=== PATIENT | female | born 1950 | race Caucasian/White ===

== ENCOUNTER 2021-06-25 02:07 | Emergency (ER) | payer OTHER, SELFPAY ==
[2021-06-25] MEDS ORDERED: ACETAMINOPHEN 500 MG TAB ONE (04:14)
[2021-06-25] MEDS ORDERED: TRAMADOL HCL 50 MG TAB ONE (04:14)
--- NOTE | 2021-06-25 04:27 | EDPHYS ---
Physician Documentation [facility] Name: Annie Guzman Age: 71 yrs Sex: Female : 1950 Arrival Date: 06/25/2021 Time: 02:07 Bed 19 Private MD: ED Physician Steven Weinberg HPI: 06/25 02:20 This 71 yrs old Female presents to ER via EMS with complaints of Fall From Bed. cp 02:20 Details of fall: The patient fell from seated position, off the edge of a bed. Onset: cp The symptoms/episode began/occurred just prior to arrival. Associated injuries: The patient sustained injury to the head, laceration, of the bridge of nose and left preauricular area, left knee, contusion, painful injury, swelling, left hip, painful injury. 02:20 No reported LOC. cp - Social history:: Smoking status: Patient denies any tobacco usage or history of. Patient/guardian denies using alcohol, street drugs. ROS: 02:30 Constitutional: Negative for body aches, chills, fever, poor PO intake. cp 02:30 Cardiovascular: Negative for chest pain, edema. cp 02:30 Respiratory: Negative for cough, shortness of breath, wheezing. 02:30 Abdomen/GI: Negative for abdominal pain, nausea, vomiting, and diarrhea. 02:30 Back: Negative for pain at rest, pain with movement. 02:30 MS/extremity: Positive for pain, tenderness, of the left hip and left knee. 02:30 Neuro: Negative for altered mental status, headache, loss of consciousness, syncope, weakness. 02:30 All other systems are negative. Exam: 02:35 Constitutional: The patient appears in no acute distress, alert, awake, cp non-diaphoretic, non-toxic, well developed, well nourished, obese. 02:35 Head/face: Noted is a laceration(s), that is superficial, of the bridge of nose and cp preauricular are left side, swelling, that is mild. 02:35 Eyes: Periorbital structures: appear normal, Pupils: equal, round, and reactive to light and accomodation, Extraocular movements: intact throughout, Conjunctiva: normal, no exudate, no injection, Sclera: no appreciated abnormality, Lids and lashes: appear normal, bilaterally. 02:35 ENT: External ear(s): are unremarkable, Ear canal(s): are normal, clear, TM's: dullness, bilaterally, Nose: bleeding, is not appreciated, no septal hematoma is appreciated, Mouth: Lips: moist, Oral mucosa: moist, Posterior pharynx: Airway: no evidence of obstruction, patent. 02:35 Neck: C-spine: vertebral tenderness, that is mild, appreciated at C5, crepitus, is not appreciated, ROM/movement: pain, that is mild, with any movement, limited range of motion, is not appreciated. 02:35 Chest/axilla: Inspection: normal, Palpation: is normal, no crepitus, no tenderness. 02:35 Cardiovascular: Rate: normal, Rhythm: regular, Edema: is not appreciated, JVD: is not appreciated. 02:35 Respiratory: the patient does not display signs of respiratory distress, Respirations: normal, no use of accessory muscles, no retractions, labored breathing, is not present, Breath sounds: are clear throughout, no decreased breath sounds, no stridor, no wheezing. 02:35 Abdomen/GI: Inspection: abdomen appears normal, Bowel sounds: active, all quadrants, Palpation: abdomen is soft and non-tender, in all quadrants. 02:35 Back: vertebral tenderness, is not appreciated. 02:35 Musculoskeletal/extremity: Extremities: grossly normal except: noted in the left hip: tenderness, There is no evidence of decreased ROM, deformity, noted in the left knee: contusion, ecchymosis, pain, swelling, tenderness, no evidence of decreased ROM, deformity. 02:35 Neuro: Orientation: to person, place \T\ time. Mentation: able to follow commands, Motor: moves all fours, strength is normal. Vital Signs: 02:14 BP 137 / 70; Pulse 60; Resp 18; Temp 98.1(O); Pulse Ox 95% on R/A; Weight 117.93 kg; sf1 Height 5 ft. 3 in. (160.02 cm); 04:20 BP 116 / 61; Pulse 58; Resp 20; Pulse Ox 93% on R/A; sf1 02:14 Body Mass Index 46.06 (117.93 kg, 160.02 cm) sf1 MDM: 02:10 Patient medically screened. cp 03:00 Differential diagnosis: abrasion, closed head injury, contusion, fracture, laceration, cp multiple trauma. 04:25 Data reviewed: vital signs, nurses notes, radiologic studies, CT scan, plain films. cp 04:25 Test interpretation: by ED physician or midlevel provider: plain radiologic studies. cp Counseling: I had a detailed discussion with the patient and/or guardian regarding: the historical points, exam findings, and any diagnostic results supporting the discharge/admit diagnosis, radiology results, to return to the emergency department if symptoms worsen or persist or if there are any questions or concerns that arise at home. Response to treatment: the patient's symptoms have mildly improved after treatment, VSS. Patient resting comfortably in exam room. Will discharge to home for continued monitoring. 06/25 02:09 Order name: XRAY Knee LEFT 3 view cp 06/25 02:10 Order name: CT Head C Spine cp 06/25 02:10 Order name: CT Facial Bones W/O Con cp 06/25 02:13 Order name: XRAY Pelvis cp 06/25 02:13 Order name: XRAY Hip LEFT 2 view cp 06/25 03:35 Order name: Wound Care: please clean wounds; Complete Time: 04:18 cp 06/25 04:01 Order name: Lupillo wrap-joint: left knee; Complete Time: 04:18 cp Administered Medications: 04:18 Drug: Tylenol 1000 mg Route: PO; sf1 04:18 Drug: UltRAM (traMADol) 50 mg Route: PO; sf1 Disposition: 08:27 Co-signature as Attending Physician, Steven Weinberg MD I agree with the assessment and kdr plan of care. Disposition Summary: 06/25/21 04:27 Discharge Ordered Location: Home cp Problem: new cp Symptoms: have improved cp Condition: Stable cp Diagnosis - Fall from bed, initial encounter cp - Contusion of left knee, initial encounter cp - Abrasion of nose, initial encounter cp - Contusion of nose, initial encounter cp - Contusion of left ear, initial encounter cp - Pain in left hip cp Followup: cp - With: Private Physician - When: 2 - 3 days - Reason: Recheck today's complaints Discharge Instructions: - Discharge Summary Sheet cp - Contusion cp - Facial or Scalp Contusion cp - Acute Knee Pain, Adult cp - Hip Pain cp Forms: - Medication Reconciliation Form cp - Thank You Letter cp - Antibiotic Education cp - Prescription Opioid Use cp Signatures: Dispatcher [employer] Steven Sylvester MD MD kdr Peter Mccartney PA PA cp Fillers, Samantha RN RN sf1
--- NOTE | 2021-06-25 04:27 | ER ---
Nurse's Notes [facility] Name: Annie Guzman Age: 71 yrs Sex: Female : 1950 Arrival Date: 06/25/2021 Time: 02:07 Bed 19 Private MD: Diagnosis: Fall from bed, initial encounter;Contusion of left knee, initial encounter;Abrasion of nose, initial encounter;Contusion of nose, initial encounter;Contusion of left ear, initial encounter;Pain in left hip Presentation: 06/25 02:14 Chief complaint: EMS states: fell from bed, bruise to the left knee, lac to the nose, sf1 and abrasion to the left ear. Coronavirus screen: Vaccine status: Patient reports receiving the 2nd dose of the covid vaccine. At this time, the client does not indicate any symptoms associated with coronavirus-19. Ebola Screen: Patient negative for fever greater than or equal to 101.5 degrees Fahrenheit, and additional compatible Ebola Virus Disease symptoms Patient denies exposure to infectious person. Patient denies travel to an Ebola-affected area in the 21 days before illness onset. Initial Sepsis Screen: Does the patient meet any 2 criteria? No. Patient's initial sepsis screen is negative. Does the patient have a suspected source of infection? No. Patient's initial sepsis screen is negative. Risk Assessment: Do you want to hurt yourself or someone else? Patient reports no desire to harm self or others. Onset of symptoms was June 25, 2021. 02:14 Method Of Arrival: EMS: [facility] sf1 02:14 Acuity: ASH 4 sf1 Triage Assessment: 02:14 General: Appears in no apparent distress. uncomfortable, Behavior is calm, cooperative, sf1 appropriate for age. Pain: Complains of pain in left knee. - Social history:: Smoking status: Patient denies any tobacco usage or history of. Patient/guardian denies using alcohol, street drugs. Screenin:19 Abuse screen: Denies threats or abuse. Nutritional screening: No deficits noted. sf1 Tuberculosis screening: No symptoms or risk factors identified. Fall Risk None identified. Assessment: 04:20 Reassessment: No changes from previously documented assessment. Derm: laceration to sf1 nose, left ear, and hematoma to the left knee. Vital Signs: 02:14 BP 137 / 70; Pulse 60; Resp 18; Temp 98.1(O); Pulse Ox 95% on R/A; Weight 117.93 kg; sf1 Height 5 ft. 3 in. (160.02 cm); 04:20 BP 116 / 61; Pulse 58; Resp 20; Pulse Ox 93% on R/A; sf1 02:14 Body Mass Index 46.06 (117.93 kg, 160.02 cm) sf1 ED Course: 02:07 Patient arrived in ED. mw2 02:08 Peter Mccartney PA is PHCP. cp 02:08 Steven Weinberg MD is Attending Physician. cp 02:14 Cande Brody, ELYSE is Primary Nurse. sf1 02:14 Arm band placed on right wrist. sf1 02:15 Triage completed. sf1 02:19 Call light in reach. sf1 02:45 CT Head C Spine In Process Unspecified. EDMS 02:45 CT Facial Bones W/O Con In Process Unspecified. EDMS 03:24 XRAY Knee LEFT 3 view In Process Unspecified. EDMS 03:24 XRAY Pelvis In Process Unspecified. EDMS 03:24 XRAY Hip LEFT 2 view In Process Unspecified. EDMS 04:22 No provider procedures requiring assistance completed. Patient did not have IV access sf1 during this emergency room visit. 04:22 Dressings: cleaned wounds. sf1 Administered Medications: 04:18 Drug: Tylenol 1000 mg Route: PO; sf1 04:18 Drug: UltRAM (traMADol) 50 mg Route: PO; sf1 Outcome: 04:27 Discharge ordered by . cp 05:33 Discharged to long-term. sf1 05:33 Condition: good 05:33 Discharge instructions given to patient, Instructed on discharge instructions, follow up and referral plans. Demonstrated understanding of instructions, follow-up care. 05:36 Patient left the ED. sf1 Signatures: Dispatcher [employer] EDMS Peter Mccartney PA PA cp [place], MyKena mw2 Cande Brody RN RN sf1
[2021-06-25 06:36] VITALS: BP 116/61; TEMP 98.1; O2SAT 93
--- NOTE | 2021-06-25 20:44 | RAD REPORT ---
EXAM DESCRIPTION: RAD - Pelvis - 06/25/2021 3:24 am CLINICAL HISTORY: 71 years, Female, PAIN COMPARISON: None FINDINGS: 1 single frontal view of the pelvis was obtained. Pelvic brim is intact. Mild to moderate degenerative changes bilateral hip joints. Visualized gas pattern is nondiagnostic. Questionable dege nerative changes lower lumbar spine. No areas of acute bony injuries were demonstrated. No gross so ft tissue abnormality is identified. There are no gross intraosseous lesions. No periosteal react ion were seen. No definitive displaced fracture are identified, if symptoms persist, clinical correla tion and/or further evaluation with CT scan and/or MRI could be of assistance. IMPRESSION: Mild to moderate degenerative changes bilateral hip joints. No gross acute bony injuries were demonstrated. Electronically signed by: Angelo Regalado MD 06/25/2021 3:54 AM CDT Due to temporary technical issues with the PACS/Fluency reporting system, reports are being signed by the in house radiologists without review as a courtesy to insure prompt reporting. The interpreting radiologist is fully responsible for the content of the report.
--- NOTE | 2021-06-25 20:46 | RAD REPORT ---
EXAM DESCRIPTION: CT - Facial Bones W/ Mpr - 06/25/2021 5:01 am CLINICAL HISTORY: Fall from bed COMPARISON: None. TECHNIQUE: CT MAXILLOFACIAL WITHOUT IV CONTRAST on 06/25/2021 2:10 AM CDT This exam was performed according to our departmental dose-optimization program, which includes autom ated exposure control, adjustment of the mA and/or kV according to patient size and/or use of iterati ve reconstruction technique. FINDINGS: There is no acute fracture. The paranasal sinuses are clear. Orbits and globes are unremar kable. Mastoid air cells are clear. Temporomandibular joints are intact. There are no significant sof t tissue abnormalities. IMPRESSION: No post-traumatic findings. Electronically signed by: Steven Almeida MD 06/25/2021 3:54 AM CDT Due to temporary technical issues with the PACS/Fluency reporting system, reports are being signed by the in house radiologists without review as a courtesy to insure prompt reporting. The interpreting radiologist is fully responsible for the content of the report.
--- NOTE | 2021-06-25 20:47 | RAD REPORT ---
EXAM DESCRIPTION: CT - Head C Spine Mpr Wo Con - 06/25/2021 5:03 am CLINICAL HISTORY: 71 years Female fall from bed TECHNIQUE: Multiple axial CT images of the brain and cervical spine were performed followed by sagit lionel and coronal reconstructed images. The CT study is performed according to ALARA (as low as reasona jc achievable) or ALARA/IMAGE GENTLY, with automatic adjustment of mA and/or kV according to patient size. Performed on: 06/25/2021 at 2:45 AM COMPARISON: None. FINDINGS: CT HEAD: There is no evidence of mass, acute mass effect or midline shift. There are no acute extra-axial flui d collections. There is no evidence of acute intracranial hemorrhage. The cerebral sulci and ventricles are normal in size and configuration. There are scattered areas of decreased attenuation within the subcortical and periventricular white m atter most likely due to mild chronic microangiopathy. There is no significant mucosal thickening of the paranasal sinuses. The mastoid air cells are clear. The orbital contents are grossly unremarkable. No acute osseous abnormalities are identified. No focal soft tissue abnormalities are identified. CT CERVICAL SPINE: The cervical vertebrae are normal in height. There is straightening of the normal cervical lordosis. There is moderate disc space narrowing at C6-C7 and mild disc space narrowing throughout the remainde r of the cervical spine. Bone mineralization is normal. The atlanto-axial articulation is preserve d and the odontoid process is intact. There is normal alignment of the facet joints on the parasagittal images. There are mild degenerative changes of the facet joints. There is no evidence of acute fracture or subluxation. There is no significant canal stenosis. Ther e is right 3-C4 and bilateral C4-C5 neural foraminal stenosis secondary to uncovertebral joint and fa cet joint hypertrophy. The prevertebral and paraspinal soft tissues are unremarkable. The lung apices are clear. There are retropharyngeal carotid arteries. There are mild atherosclerotic calcifications along the carotid bifurcations. IMPRESSION: CT HEAD: 1. There is no evidence of acute intracranial pathology. 2. Mild chronic microangiopathy. CT CERVICAL SPINE: 1. No evidence of acute cervical spine injury. 2. Mild degenerative changes of the cervical spine as described above. Electronically signed by: Katharine Carpenter DO 06/25/2021 4:03 AM CDT Due to temporary technical issues with the PACS/Fluency reporting system, reports are being signed by the in house radiologists without review as a courtesy to insure prompt reporting. The interpreting radiologist is fully responsible for the content of the report.
--- NOTE | 2021-06-25 20:49 | RAD REPORT ---
EXAM DESCRIPTION: RAD - Hip Left 2 View - 06/25/2021 3:24 am CLINICAL HISTORY: 71 years, Female, PAIN COMPARISON: None FINDINGS: 2 views of the hip (frontal view of the left hip and frogleg view of the left hip) were ob tained. No areas of acute bony injuries were demonstrated. No gross soft tissue abnormality is i dentified. There are no gross intraosseous lesions. No periosteal reaction were seen. There are moderate to severe osteoarthritis left hip joint with the significant sclerosis, decreased intra-art icular height space, subchondral cyst and spur formations. IMPRESSION: Moderate to severe left hip osteoarthritis. No evidence for acute bony injuries Electronically signed by: Angelo Regalado MD 06/25/2021 3:55 AM CDT Due to temporary technical issues with the PACS/Fluency reporting system, reports are being signed by the in house radiologists without review as a courtesy to insure prompt reporting. The interpreting radiologist is fully responsible for the content of the report.
--- NOTE | 2021-06-25 20:50 | RAD REPORT ---
EXAM DESCRIPTION: RAD - Knee Left 3 View - 06/25/2021 3:24 am CLINICAL HISTORY: 71 years, Female, PAIN COMPARISON: None. FINDINGS: 3 X-ray views of the left knee (Frontal, lateral and oblique views) were performed. There is mild bony osteopenia. There is no evidence for fracture or dislocation. There are no gross intra osseous lesions. No gross soft tissue abnormality is identified. There are moderate degenerative changes within the 3 compartments of the left knee slightly more pronounced along the patellofemoral articulation. There is no joint effusion. There is no periostitis. IMPRESSION: Moderate degenerative changes within the left knee. Electronically signed by: Angelo Regalado MD 06/25/2021 3:53 AM CDT Due to temporary technical issues with the PACS/Fluency reporting system, reports are being signed by the in house radiologists without review as a courtesy to insure prompt reporting. The interpreting radiologist is fully responsible for the content of the report.
== END 2021-06-25 05:36 | disposition home or self-care (01) ==
LOC: ER 02:07
DX: S00.31XA Abrasion of nose, initial encounter (principal); S00.33XA Contusion of nose, initial encounter; S80.02XA Contusion of left knee, initial encounter; S00.432A Contusion of left ear, initial encounter; M25.552 Pain in left hip; W06.XXXA Fall from bed, initial encounter
CPT/HCPCS: 70450; 70486; 72125; 72170; 76377; 99283

== ENCOUNTER 2025-02-01 02:35 | Emergency (ER) | payer OTHER ==
[2025-02-01] MEDS ORDERED: TRANEXAMIC ACID 1,000 MG/10 ML VIAL IV ONE (03:22)
[2025-02-01 03:42] LABS: Absolute Lymphocytes (CBC) 1.7 K/uL (0.7-4.9); Hematocrit 34.5 % (36.0-45.0); Hemoglobin 10.9 g/dL (12.0-15.0); MCH 23.8 pg (27.0-35.0); MCHC 31.5 g/dL (32.0-36.0); MCV 75.6 fL (80-100); MPV 7.6 fL (7.6-11.3); Nucleated RBC Absolute Count 0.0 (0-0); Nucleated Red Blood Cells % 0.0 % (0-0); RBC Red Blood Cell Count 4.57 M/uL (3.86-4.86); White Blood Count 7.30 thou/uL (4.3-10.9)
[2025-02-01 03:55] LABS: PT Prothrombin Time 14.4 SECONDS (10-13.0); PTT, Activated Partial Thromb 33.7 SECONDS (27.2-37.4); Protime INR 1.28
[2025-02-01] MEDS ORDERED: ONDANSETRON 4 MG/2 ML VIAL ONE (03:56)
[2025-02-01] MEDS ORDERED: HYDROMORPHONE HCL 0.5 MG/0.5 ML INJ ONE (03:56)
[2025-02-01 03:58] LABS: Anion Gap 11.6 mEq/L (5.0-15.0); BUN Blood Urea Nitrogen 9.0 mg/dL (7-18); Glucose Level 146.0 mg/dL (74-106); Potassium 3.6 mEq/L (3.5-5.1)
--- NOTE | 2025-02-01 04:41 | ER ---
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 8 teeth was pulled out. 03:07 Coronavirus screen: Client denies travel out of the [place] in the last 14 days. Ebola rg5 Screen: Patient negative for fever greater than or equal to 101.5 degrees Fahrenheit, and additional compatible Ebola Virus Disease symptoms Patient denies exposure to infectious person. Patient denies travel to an Ebola-affected area in the 21 days before illness onset. Initial Sepsis Screen: Does the patient meet any 2 criteria? No. Patient's initial sepsis screen is negative. Does the patient have a suspected source of infection? No. Patient's initial sepsis screen is negative. Risk Assessment: Do you want to hurt yourself or someone else? Patient reports no desire to harm self or others. Onset of symptoms was February 01, 2025. Care prior to arrival: None. 03:07 Method Of Arrival: EMS: [facility] rg5 03:07 Acuity: ASH 3 rg5 Triage Assessment: 03:15 General: Appears in no apparent distress. Behavior is calm, cooperative, appropriate rg5 for age. Pain: Complains of pain in upper left third molar and lower left third molar Quality of pain is described as aching. EENT: Reports pain gum bleeding. Neuro: Level of Consciousness is awake, alert, obeys commands, Oriented to person, place, time, situation. Cardiovascular: Patient's skin is warm and dry. Respiratory: Airway is patent Trachea midline Respiratory effort is even, unlabored, Respiratory pattern is regular, symmetrical. GI: Abdomen is round obese. : No signs and/or symptoms were reported regarding the genitourinary system. Derm: Skin is intact, is fragile, Skin is dry. Musculoskeletal: Circulation, motion, and sensation intact. Range of motion: intact in all extremities. Historical: - Allergies: 03:15 PENICILLINS; rg5 03:15 Promethazine; rg5 03:15 Sulfa (Sulfonamide Antibiotics); rg5 - PMHx: 03:15 depressive disorder; diabetes mellitus; Gastroesophageal reflux disease; Hypertensive rg5 disorder; Hypothyroidism; PERIPHERAL NEUROPATHY; Rheumatoid Arthritis; - PSHx: 03:15 Right knee replacement; rg5 - Immunization history:: Adult Immunizations up to date. - Infectious Disease History:: Denies. - Social history:: Smoking status: Patient denies any tobacco usage or history of. Screenin:41 [facility] ED Fall Risk Assessment (Adult) History of falling in the last 3 months, rg5 including since admission No falls in past 3 months (0 pts) Confusion or Disorientation No (0 pts) Intoxicated or Sedated No (0 pts) Impaired Gait No (0 pts) Mobility Assist Device Used No (0 pt) Altered Elimination No (0 pt) Score/Fall Risk Level 0 - 2 = Low Risk Oriented to surroundings, Maintained a safe environment. Abuse screen: Denies threats or abuse. Nutritional screening: No deficits noted. Tuberculosis screening: No symptoms or risk factors identified. Assessment: 03:41 Reassessment: No changes from previously documented assessment. Patient and/or family rg5 updated on plan of care and expected duration. Pain level reassessed. Patient is alert, oriented x 3, equal unlabored respirations, skin warm/dry/pink. 04:02 Reassessment: Patient is alert, oriented x 3, equal unlabored respirations, skin rg5 warm/dry/pink. Patient states symptoms have improved. Vital Signs: 03:15 BP 110 / 77; Pulse 70; Resp 18; Temp 98; Pulse Ox 97% on R/A; Weight 114.89 kg; Height rg5 5 ft. 3 in. ; Pain 7/10; 04:02 BP 107 / 55; Pulse 63; Resp 18; Pulse Ox 95% ; Pain 7/10; rg5 03:15 Body Mass Index 44.87 (114.89 kg, 160.02 cm) rg5 03:15 Pain Scale: Adult rg5 04:02 Pain Scale: Adult rg5 ED Course: 03:05 Patient arrived in ED. gm2 03:07 Akilah Fagan MD is Attending Physician. sp3 03:10 Nishant Reza, ELYSE is Primary Nurse. rg5 03:15 Triage completed. rg5 03:41 Patient has correct armband on for positive identification. Door closed. Noise rg5 minimized. Warm blanket given. 03:41 No provider procedures requiring assistance completed. Inserted saline lock: 20 gauge rg5 in right wrist, using aseptic technique. Blood collected. Flushed with 10 mL NS. Patient maintains SpO2 saturation greater than 95% on room air. 04:41 called [facility] spoke with Daly advised patient was up for DC she stated she vk will set up transport. 04:50 Provided Education on: post er care. rg5 04:50 IV discontinued, bleeding controlled, No redness/swelling at site. Pressure dressing rg5 applied. Administered Medications: 03:30 Drug: tranexamic acid IV 1000 mg IV at calculated rate once; TOPICAL {Note: gum upper rg5 left.} Route: IV; Rate: calculated rate; Site: Other; 04:51 Follow up: IV Status: Completed infusion; IV Intake: 10ml rg5 04:01 Drug: HYDROmorphone IVP 0.5 mg IVP once Route: IVP; Site: right wrist; rg5 04:12 Follow up: Response: No adverse reaction; Pain is decreased rg5 04:01 Drug: Ondansetron IVP 4 mg IVP once; over 2 minutes Route: IVP; Site: right wrist; rg5 04:12 Follow up: Response: No adverse reaction rg5 Medication: 03:41 VIS not applicable for this client. rg5 Intake: 04:51 IV: 10ml; Total: 10ml. rg5 Outcome: 04:40 Discharge ordered by . sp3 04:50 Condition: stable rg5 05:16 Discharged to home via ambulance, rg5 05:16 Discharge instructions given to patient, Instructed on discharge instructions, rg5 Demonstrated understanding of instructions, follow-up care, 05:17 Patient left the ED. rg5 Signatures: Akilah Fagan MD MD sp3 Cortney Owens Vivian vk Gallardo, Rommel, RN RN rg5
--- NOTE | 2025-02-01 04:41 | EDPHYS ---
Physician Documentation [facility] Name: Annie Guzman Age: 75 yrs Sex: Female : 1950 Arrival Date: 02/01/2025 Time: 02:35 Bed 14 Private MD: ED Physician Akilah Fagan HPI: 02/01 03:24 This 75 yrs old Female presents to ER via EMS with complaints of bleeding at dental sp3 extraction site. 03:24 75-year-old female with history of diabetes, GERD, hypertension, on daily aspirin 81 mg sp3 who is now status post dental extraction of greater than 8 teeth presents with dental socket bleeding on the left maxillary site in the molar area. Extraction occurred 5 days ago. Patient states she had a "blister that popped at that site today" and bleeding has ensued since. Patient reports clots and liquid bleeding as well. Patient denies bleeding elsewhere. Last 81 mg aspirin dose was this morning. She denies any other symptoms including headache, neck pain, chest pain, shortness of breath, abdominal pain, vomiting, diarrhea or any other signs or symptoms on ROS at this time.. Historical: - Allergies: 03:15 PENICILLINS; rg5 03:15 Promethazine; rg5 03:15 Sulfa (Sulfonamide Antibiotics); rg5 - PMHx: 03:15 depressive disorder; diabetes mellitus; Gastroesophageal reflux disease; Hypertensive rg5 disorder; Hypothyroidism; PERIPHERAL NEUROPATHY; Rheumatoid Arthritis; - PSHx: 03:15 Right knee replacement; rg5 - Immunization history:: Adult Immunizations up to date. - Infectious Disease History:: Denies. - Social history:: Smoking status: Patient denies any tobacco usage or history of. ROS: 03:27 Constitutional: Negative for fever, chills, and weight loss, Eyes: Negative for injury, sp3 pain, redness, and discharge, Neck: Negative for injury, pain, and swelling, Cardiovascular: Negative for chest pain, palpitations, and edema, Respiratory: Negative for shortness of breath, cough, wheezing, and pleuritic chest pain, Abdomen/GI: Negative for abdominal pain, nausea, vomiting, diarrhea, and constipation, Back: Negative for injury and pain, MS/Extremity: Negative for injury and deformity, Skin: Negative for injury, rash, and discoloration, Neuro: Negative for headache, weakness, numbness, tingling, and seizure, Psych: Negative for depression, anxiety, suicide ideation, homicidal ideation, and hallucinations, Allergy/Immunology: Negative for hives, rash, and allergies, Endocrine: Negative for neck swelling, polydipsia, polyuria, polyphagia, and marked weight changes, 03:27 All other systems are negative, Exam: 03:27 Constitutional: This is a well developed, well nourished patient who is awake, alert, sp3 and in no acute distress. Eyes: Pupils equal round and reactive to light, extra-ocular motions intact. Lids and lashes normal. Conjunctiva and sclera are non-icteric and not injected. Cornea within normal limits. Periorbital areas with no swelling, redness, or edema. Neck: Trachea midline, no thyromegaly or masses palpated, and no cervical lymphadenopathy. Supple, full range of motion without nuchal rigidity, or vertebral point tenderness. No Meningismus. Chest/axilla: Normal chest wall appearance and motion. Nontender with no deformity. No lesions are appreciated. Cardiovascular: Regular rate and rhythm with a normal S1 and S2. No gallops, murmurs, or rubs. Normal PMI, no JVD. No pulse deficits. Respiratory: Lungs have equal breath sounds bilaterally, clear to auscultation and percussion. No rales, rhonchi or wheezes noted. No increased work of breathing, no retractions or nasal flaring. Abdomen/GI: Soft, non-tender, with normal bowel sounds. No distension or tympany. No guarding or rebound. No evidence of tenderness throughout. Back: No spinal tenderness. No costovertebral tenderness. Full range of motion. Skin: Warm, dry with normal turgor. Normal color with no rashes, no lesions, and no evidence of cellulitis. 03:27 Head/face: Ecchymosis noted on bilateral cheeks and chin area consistent with prior dental extraction.. 03:27 ENT: Patient is mouth with extensive blood clot from bleeding site. We will need to clean area to identify exact location.. Vital Signs: 03:15 BP 110 / 77; Pulse 70; Resp 18; Temp 98; Pulse Ox 97% on R/A; Weight 114.89 kg; Height rg5 5 ft. 3 in. ; Pain 7/10; 04:02 BP 107 / 55; Pulse 63; Resp 18; Pulse Ox 95% ; Pain 7/10; rg5 03:15 Body Mass Index 44.87 (114.89 kg, 160.02 cm) rg5 03:15 Pain Scale: Adult rg5 04:02 Pain Scale: Adult rg5 MDM: 03:08 Medical Screening Exam initiated sp3 03:28 Data reviewed: vital signs, nurses notes, lab test result(s). ED course: . sp3 03:29 ED course: 75-year-old female with bleeding from dental extraction site presumably in sp3 the left maxillary at the molar area. Will clean area and attempt to identify exact site followed by direct topical TXA application as well as gauze soaked with TA with direct pressure at that site. Vital signs are normal. Patient does not appear to be in any distress and blood loss does not appear to be significant based on history and physical. Disposition pending workup and patient course.. 04:41 ED course: All bleeding now resolved.. sp3 02/01 03:22 Order name: Basic Metabolic Panel; Complete Time: 04:45 sp3 02/01 03:22 Order name: CBC with Diff; Complete Time: 04:45 sp3 02/01 03:22 Order name: Type And Screen; Complete Time: 04:45 sp3 02/01 03:29 Order name: PT-INR; Complete Time: 04:45 sp3 02/01 03:29 Order name: Ptt, Activated; Complete Time: 04:45 sp3 02/01 03:22 Order name: Labs collected and sent; Complete Time: 03:39 sp3 02/01 03:22 Order name: Misc. Order: Apply TXA topically at bleeding site on left maxilla; Complete sp3 Time: 03:38 Administered Medications: 03:30 Drug: tranexamic acid IV 1000 mg IV at calculated rate once; TOPICAL {Note: gum upper rg5 left.} Route: IV; Rate: calculated rate; Site: Other; 04:51 Follow up: IV Status: Completed infusion; IV Intake: 10ml rg5 04:01 Drug: HYDROmorphone IVP 0.5 mg IVP once Route: IVP; Site: right wrist; rg5 04:12 Follow up: Response: No adverse reaction; Pain is decreased rg5 04:01 Drug: Ondansetron IVP 4 mg IVP once; over 2 minutes Route: IVP; Site: right wrist; rg5 04:12 Follow up: Response: No adverse reaction rg5 Disposition Summary: 02/01/25 04:40 Discharge Ordered Notes: Location: Home sp3 Condition: Stable sp3 Diagnosis - Bleeding from dental socket, resolved sp3 Followup: sp3 - With: Private Physician - When: Upon discharge from the Emergency Department - Reason: Recheck today's complaints, Continuance of care Discharge Instructions: - Discharge Summary Sheet sp3 - Dental Extraction, Care After sp3 Forms: - Medication Reconciliation Form sp3 - Antibiotic Education sp3 - Prescription Opioid Use sp3 - Patient Portal Instructions sp3 - Leadership Thank You Letter sp3 Signatures: Dispatcher [employer] Akilah Choi MD MD sp3 Nishnat Reza RN RN rg5
[2025-02-01 05:39] VITALS: TEMP 98
[2025-02-01 05:40] VITALS: BP 107/55; O2SAT 95
== END 2025-02-01 05:17 | disposition home or self-care (01) ==
LOC: ER 02:35
DX: K91.840 Postprocedural hemorrhage of a digestive system organ or structure following a digestive system procedure (principal); Z79.82 Long term (current) use of aspirin
CPT/HCPCS: 96365; 85025; 80048; 36415; 86900; 86850; 85610; 86901; 85730; 96375; 99284; J1171; J2405